=== PATIENT | male | born 1970 | race Two or more races ===

== ENCOUNTER → 2019-04-03 | Outpatient (REF) | payer OTHER | LOC: M LAB REF 08:54 | PROVIDERS: ATTEND Physician Assistant | DX: L02.01 Cutaneous abscess of face (principal) ==

== ENCOUNTER 2021-01-15 14:27 | Outpatient (RCR) | payer OTHER | END 2021-01-17 | LOC: M OT 14:27 | PROVIDERS: ATTEND Nurse Practitioner Primary Care | DX: M25.531 Pain in right wrist (principal) ==